=== PATIENT | female | born 1950 | race Caucasian/White ===

== ENCOUNTER → 2017-08-29 | Outpatient (CLI) | payer OTHER, MEDICARE | LOC: BMCIMAGING 14:41 | PROVIDERS: ATTEND Internal Medicine | DX: Z13.820 Encounter for screening for osteoporosis (principal); M81.0 Age-related osteoporosis without current pathological fracture ==

== ENCOUNTER 2017-12-21 16:49 | Observation (INO) | payer OTHER, MEDICARE ==
[2017-12-21] MEDS ORDERED: ONDANSETRON 4 MG/2 ML VIAL ONE (17:17)
[2017-12-21] MEDS ORDERED: ONDANSETRON 4 MG/2 ML VIAL IVP ONE ×2 (17:17→18:03)
[2017-12-21] MEDS ORDERED: NS 1,000 ML IV ONE (17:34)
[2017-12-21 17:39] LABS: PLATELET COUNT 287 10^3/uL (150-400)
--- NOTE | 2017-12-21 17:40 | EDPHY ---
HPI/HX/ROS/PE/MDM - Data Points Imaging: Discussed imaging studies w/ house calls nurse practitioner Radiologist Narrative: CHIEF COMPLAINT: Nausea and vomiting HISTORY OF PRESENT ILLNESS: The patient is a 67 y/o female with a history of kidney stones and osteoporosis complaining of acute onset nausea and vomiting, onset 2:30 PM, 3 hours ago. A month ago, she developed pain in her right flank. She was diagnosed with a bladder infection and took a course of Macrobid. The pain continued. She had several massages and does not feel the pain is muscular in origin. She had a urinalysis a few days ago for the continued pain. Her urine was not indicative of an infection. Today she abruptly developed nausea and vomiting. She has associated global weakness. She denies dizziness, fever, diarrhea, abdominal pain, or any other associated symptoms. She reports this is similar in presentation to previous kidney stones. She denies history of diabetes, hypertension, liver conditions, or cardiac conditions. She had a , but reports no other abdominal surgeries. Patient reports her nausea is much worse with movements. She denies dizziness or spinning sensation. No fever, chills, chest pain, shortness of breath, palpitations, diarrhea, headache, lightheadedness. REVIEW OF SYSTEMS: Aside from elements discussed in the HPI, a comprehensive 10-point review of systems was reviewed and is negative. PAST MEDICAL HISTORY: Kidney stones, osteoporosis, SOCIAL HISTORY: at bedside, lives in [place], retired VITAL SIGNS: Reviewed by me GENERAL: Ill-appearing, laying with eyes closed, reports nausea when sitting up. HEENT: Atraumatic. Eyes: No icterus, no injection. EOMI. No nystagmus. Prefers to lay with her eyes closed. Mouth: moist mucous membranes. No erythema or lesions. Neck: supple with no adenopathy. LUNGS: Clear to auscultation bilaterally, no wheezes, rhonchi or rales. CARDIAC: Regular rate and rhythm, no rubs, murmurs or gallops. ABDOMEN: Suprapubic tenderness, no other abdominal tenderness. Soft, nondistended, bowel sounds normal. BACK: No CVA tenderness. EXTREMITIES: No trauma. No edema. Range of motion is normal throughout. NEURO: Alert and oriented x3. Moving all studies x4. Unable to do finger to nose well secondary to significant dizziness. No gait disturbances reported by the family. SKIN: Warm and dry, no rash. PSYCHIATRIC: Normal mentation, no agitation. (Haritha Atwood) ED Course: 12-LEAD EKG: Please see the full report in [facility]. My interpretation: Normal sinus rhythm The patient presents with acute onset nausea and vomiting today. She has had ongoing right flank pain with a normal UA yesterday. She has a history of kidney stones presenting this way. Plan for CBC, basic metabolic panel, lipase, urinalysis, and abdominal CT. 8 mg Zofran and 1L NS fluid for symptoms. 6:10 PM- CT the abdomen pelvis is normal, no bladder abnormalities noted, no kidney stones. Patient continues to report significant nausea and retching. She looks poorly. Plan for EKG, troponin, and liver enzymes to evaluate other possible causes. 6:35 PM- EKG is normal sinus rhythm, rate 73. New labs are still pending. Zofran hasn't been able to control symptoms. Phenergan has been administered. 7:25 PM- On reexamination, the patient continues to be nauseated and is hyperventilating. She reports dramatic worsening in symptoms with movement of her body but not her eyes. She is producing a urine sample now. Zofran and Phenergan haven't been able to ease symptoms. Valium will be administered once she returns to her room. Plan for CT of the head to investigate neurologic etiology. 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 No ventricular enlargement. Patient has improved with Valium. However, she still is quite nauseous with any type of movement. I feel evaluation for posterior circulation/cerebellar stroke should be pursued. MRI was ordered. She will be admitted for further evaluation. Course discussed with Dr. Meléndez. ( Haritha Atwood) MDM: 2231: MRI of the brain cause me by Dr. Coreas this is negative for acute posterior circulation stroke or infarct, no evidence of stroke or bleed. ( Shekhar Cuevas) Differential diagnoses for the patient's symptom complex was considered including but not limited to pancreatitis, gastritis, electrolyte abnormalities , kidney stone, cerebellar infarct, hypoperfusion, cardiac disease. (Haritha Atwood) - Data Points Imaging Results: Imaging Impressions Abdomen/Pelvis CT 12/21/17 17:35 Impression: 1. Nonobstructive subtle nephrolithiasis. 2. No source for right flank pain identified. Results discussed with Dr. Atwood. Attention: This CT examination is specifically designed to evaluate patients who are clinically suspected of having acute obstructive uropathy. This examination does not use radiographic contrast, and as such, provides only a limited evaluation of the abdomen, pelvis and retroperitoneum. If there is further clinical suspicion for pathological conditions other than obstructive uropathy, a complete CT evaluation of the abdomen and pelvis utilizing intravenous, oral, and rectal contrast should be considered. General information for patients regarding this examination can be found at [employer]. If you have questions or comments about this report, please contact me at [phone](hospital) or [phone] (cell). Head CT 12/21/17 19:34 Impression: 1. 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 2. Right scleral calcification of uncertain clinical significance. Results called to Dr. Atwood' scribe at 8:45 PM General information for patients regarding this examination can be found at [employer]. If you have questions or comments about this report, please contact me at (hospital) or [phone] (cell). Brain MRI 12/21/17 21:15 Impression: No source for acute symptoms identified. No evidence for posterior fossa infarction. Results discussed with Dr. Coffman at 22:30 PM. Laboratory Results: Laboratory Results 12/21/17 17:29 12/21/17 17:29 12/21/17 12/21/17 12/21/17 21:45 19:40 17:34 WBC RBC Hgb Hct MCV MCH MCHC RDW Plt Count MPV Neut % (Auto) Lymph % (Auto) [place] % (Auto) Eos % (Auto) Baso % (Auto) Nucleat RBC Rel Count Absolute Neuts (auto) Absolute Lymphs (auto) Absolute Monos (auto) Absolute Eos (auto) Absolute Basos (auto) Absolute Nucleated RBC Immature Gran % Immature Gran # Sodium Potassium Chloride Carbon Dioxide Anion Gap BUN Creatinine Estimated GFR Glucose Calcium Total Bilirubin 0.4 mg/dL mg/dL (0.1-1.4) Conjugated Bilirubin 0.3 mg/dL mg/dL (0.0-0.5) Unconjugated Bilirubin 0.1 mg/dL mg/dL (0.0-1.1) AST 29 IU/L IU/L (14-46) ALT 35 IU/L IU/L (9-52) Alkaline Phosphatase 93 IU/L IU/L (38-126) Troponin I < 0.012 ng/mL ng/mL < 0.012 ng/mL ng/mL (0.000-0.034) (0.000-0.034) Total Protein 7.0 g/dL g/dL (6.3-8.2) Albumin 4.4 g/dL g/dL (3.5-5.0) Lipase Urine Color YELLOW Urine Appearance HAZY Urine pH 5.0 (5.0-7.5) Ur Specific [place] 1.018 (1.002-1.030) Urine Protein NEGATIVE (NEGATIVE) Urine Ketones 2+ H (NEGATIVE) Urine Blood NEGATIVE (NEGATIVE) Urine Nitrate NEGATIVE (NEGATIVE) Urine Bilirubin NEGATIVE (NEGATIVE) Urine Urobilinogen NEGATIVE EU EU (0.2-1.0) Ur Leukocyte Esterase 2+ H (NEGATIVE) Urine RBC 1-3 /hpf /hpf (0-3) Urine WBC 5-10 /hpf H /hpf (0-3) Ur Epithelial Cells TRACE /lpf /lpf (NONE-1+) Hyaline Casts 1-5 /lpf /lpf (0-1) Urine Mucus TRACE /lpf /lpf (NONE-1+) Urine Glucose NEGATIVE (NEGATIVE) 12/21/17 12/21/17 17:29 17:29 WBC 9.42 10^3/uL 10^3/uL (3.80-9.50) RBC 4.05 10^6/uL L 10^6/uL (4.18-5.33) Hgb 13.8 g/dL g/dL (12.6-16.3) Hct 38.3 % % (38.0-47.0) MCV 94.6 fL D fL (81.5-99.8) MCH 34.1 pg pg (27.9-34.1) MCHC 36.0 g/dL g/dL (32.4-36.7) RDW 12.4 % % (11.5-15.2) Plt Count 287 10^3/uL 10^3/uL (150-400) MPV 9.5 fL fL (8.7-11.7) Neut % (Auto) 77.1 % H % (39.3-74.2) Lymph % (Auto) 17.1 % % (15.0-45.0) [place] % (Auto) 4.4 % L % (4.5-13.0) Eos % (Auto) 0.3 % L % (0.6-7.6) Baso % (Auto) 0.5 % % (0.3-1.7) Nucleat RBC Rel Count 0.0 % % (0.0-0.2) Absolute Neuts (auto) 7.26 10^3/uL H 10^3/uL (1.70-6.50) Absolute Lymphs (auto) 1.61 10^3/uL 10^3/uL (1.00-3.00) Absolute Monos (auto) 0.41 10^3/uL 10^3/uL (0.30-0.80) Absolute Eos (auto) 0.03 10^3/uL 10^3/uL (0.03-0.40) Absolute Basos (auto) 0.05 10^3/uL 10^3/uL (0.02-0.10) Absolute Nucleated RBC 0.00 10^3/uL 10^3/uL (0-0.01) Immature Gran % 0.6 % % (0.0-1.1) Immature Gran # 0.06 10^3/uL 10^3/uL (0.00-0.10) Sodium 139 mEq/L mEq/L (135-145) Potassium 3.3 mEq/L L mEq/L (3.5-5.2) Chloride 105 mEq/L mEq/L (97-110) Carbon Dioxide 13 mEq/l L mEq/l (22-31) Anion Gap 21 mEq/L H mEq/L (8-16) BUN 16 mg/dL mg/dL (7-23) Creatinine 0.9 mg/dL mg/dL (0.6-1.0) Estimated GFR > 60 Glucose 192 mg/dL H mg/dL (70-100) Calcium 9.7 mg/dL mg/dL (8.5-10.4) Total Bilirubin Conjugated Bilirubin Unconjugated Bilirubin AST ALT Alkaline Phosphatase Troponin I Total Protein Albumin Lipase 119 IU/L IU/L (23-300) Urine Color Urine Appearance Urine pH Ur Specific [place] Urine Protein Urine Ketones Urine Blood Urine Nitrate Urine Bilirubin Urine Urobilinogen Ur Leukocyte Esterase Urine RBC Urine WBC Ur Epithelial Cells Hyaline Casts Urine Mucus Urine Glucose Medications Given: Discontinued Medications Diazepam (Valium) 5 mg IVP EDNOW ONE Stop: 12/21/17 19:36 Last Admin: 12/21/17 20:07 Dose: 5 mg Sodium Chloride (Ns) 1,000 mls @ 0 mls/hr IV EDNOW ONE; Wide Open PRN Reason: Protocol Stop: 12/21/17 17:35 Last Admin: 12/21/17 18:00 Dose: 1,000 mls Ondansetron HCl (Zofran) 4 mg IVP EDNOW ONE Stop: 12/21/17 17:18 Last Admin: 12/21/17 17:28 Dose: 4 mg Ondansetron HCl (Zofran) 4 mg IVP EDNOW ONE Stop: 12/21/17 18:04 Last Admin: 12/21/17 18:04 Dose: 4 mg Promethazine HCl (Phenergan) 12.5 mg IVP EDNOW ONE Stop: 12/21/17 19:14 Last Admin: 12/21/17 19:24 Dose: 12.5 mg General Time Seen by Provider: 12/21/17 17:10 Initial Vital Signs: Initial Vital Signs Temperature (C) 36.4 C 12/21/17 16:50 Heart Rate 85 12/21/17 16:50 Respiratory Rate 20 12/21/17 16:50 Blood Pressure 117/71 12/21/17 16:50 O2 Sat (%) 99 12/21/17 16:50 O2 Delivery Mode Nasal Cannula O2 (L/minute) 2 Allergies/Adverse Reactions: codeine Allergy (Mild, Verified 12/21/17 17:02) GI Home Medications: Medication Instructions Recorded NK [No Known Home Meds] 12/21/17 Departure - Departure Disposition: [facility] Inpatient Acute Clinical Impression: Nausea Condition: Fair Report Scribed for: Haritha Atwood Report Scribed by: Tiffany Arcos Date of Report: 12/21/17 Time of Report: 17:43 Physician Review and Approval Statement: Portions of this note were transcribed by a medical transcriptionist. I personally performed a history, physical exam, medical decision making, and confirmed accuracy of information the transcribed note.
--- NOTE | 2017-12-21 18:36 | CPEKG ---
Heart Rate: 73 RR Interval: 822 P-R Interval: 172 QRSD Interval: 84 QT Interval: 456 QTC Interval: 503 P [place]: 75 QRS [place]: 31 T Wave [place]: 54 EKG Severity - BORDERLINE ECG - EKG Impression: SINUS RHYTHM EKG Impression: BORDERLINE PROLONGED QT INTERVAL Electronically Signed By: Won Ramires 21-Dec-2017 21:53:52
[2017-12-21] MEDS ORDERED: PROMETHAZINE HCL 25 MG/ML INJ IVP ONE (19:13)
[2017-12-21] MEDS ORDERED: MECLIZINE HCL 25 MG TAB ONE (19:16)
[2017-12-21] MEDS ORDERED: DIAZEPAM 5 MG/ML 1 ML SYR IVP ONE (19:35)
[2017-12-21] MEDS ORDERED: LORazepam 2 MG/ML INJ ONE (19:45)
[2017-12-21] MEDS ORDERED: ACETAMINOPHEN 325 MG TAB PO PRN (22:52)
[2017-12-21] MEDS ORDERED: PROMETHAZINE HCL 25 MG/ML INJ IVP PRN (22:52)
[2017-12-21] MEDS ORDERED: ONDANSETRON 4 MG/2 ML VIAL IVP PRN (22:52)
[2017-12-21] MEDS ORDERED: NS 1,000 ML IV SCH (23:00)
[2017-12-21] MEDS ORDERED: DIAZEPAM 5 MG/ML 1 ML SYR IVP PRN (23:14)
[2017-12-22] MEDS ORDERED: PROTOCOL POTASSIUM 1 DOSE MISC PRN (02:02)
--- NOTE | 2017-12-22 03:47 | PDGENHP ---
History and Physical - Chief Complaint Intractable nausea vomiting - History of Present Illness Source-patient provides history appears reliable. EMR was reviewed and case discussed with ED provider. HPI - the very pleasant 63-year-old female with past medical history significant for nephrolithiasis and osteoporosis who presents emergency department today with sudden onset of severe nausea vomiting. Patient reports that she has also has ongoing intermittent for of right flank pain which she thought was likely due to her kidney stones. She does have a history of passing a stone in 1995 and was found to be oxalate. Patient was also identified to have a possible UTI approximately 1 month ago for which she was treated with Macrobid. She did have symptoms consistent with a cystitis which did resolve with antibiotic therapy. She denies any current dysuria or his gross hematuria. Patient did continue to have intermittent right flank pain until now however she did attempt to have massage therapy applied and reports that her pain persisted and did not appear to be musculoskeletal in nature. Patient denies any fevers or chills. Patient did continue to have severe nausea with few episodes of vomiting with any kind of movement. Patient was at her school volunteering at a when at 4:00 p.m. She developed her symptoms started suddenly. She did feel she could drive so she called her to drive her to Urgent Care over when she had a stops she got to the car she had an episode of nonbloody nonbilious emesis. Patient its subsequently dropped her off at [facility] instead. Patient has not had any a associated diarrhea, abdominal pain, distension. She did feel and epigastric "knot" but no pain. Patient at no point had any associated vertigo or lightheadedness. She denies any numbness or headache. History Information - Allergies/Home Medication List Allergies/Adverse Reactions: codeine Allergy (Mild, Verified 12/21/17 17:02) GI Home Medications: NK [No Known Home Meds] 12/21/17 [Last Taken Unknown] I have personally reviewed and updated: family history, medical history, social history, surgical history Past Medical History: Nephrolithiasis, osteoporosis, newly identified brain cyst left parietal lobe. - Surgical History Additional surgical history: , ACL, left breast - Family History Additional family history: Sister with osteoporosis, mother with CVA and colon cancer, father with history of prostate cancer and CAD. - Social History Smoking Status: Never smoked Alcohol Use: Occasionally Drug Use: None Additional social history: Patient is lives with her . She is retired. Cor status-full. Review of Systems Review of Systems: ROS: 10pt was reviewed & negative except for what was stated in HPI & below Physical Exam Physical Exam: Selected Entries 12/21/17 16:50 Blood Pressure Automatic Method Heart Rate 85 Respiratory 20 Rate O2 Sat (%) 99 Temperature (C) 36.4 C Blood Pressure 117/71 Mean Arterial 86 Pressure (MAP) O2 Delivery Room Air Mode Temperature Oral Source Temp Pulse Resp BP Pulse Ox 36.6 C 63 16 107/66 97 12/22/17 00:00 12/22/17 00:00 12/22/17 00:00 12/22/17 00:00 12/22/17 00:00 O2 (L/minute) 2 Constitutional: no apparent distress, not in pain, other (Patient appears fatigued but awake and in pleasant spirits.) Eyes: PERRL (Decreased reactivity light bilaterally but symmetric.), anicteric sclera, EOMI, No scleral injection Ears, Nose, Mouth, Throat: moist mucous membranes, No poor dentition Cardiovascular: regular rate and rhythym, no murmur, rub, or gallop, other ( Slightly distant heart sounds.), No edema Peripheral Pulses: 2+: dorsalis-pedis (R), dorsalis-pedis (L) Respiratory: no respiratory distress, no rales or rhonchi, clear to auscultation , No expiratory wheeze Gastrointestinal: normoactive bowel sounds, soft, non-tender abdomen, no palpable masses, No guarding, No distension Genitourinary: no bladder tenderness, No paulino in urethra Skin: warm, normal color, mottled, no rashes or abrasions, no fluctuance, other (Minimal pallor) Musculoskeletal: generalized weakness, No pain with ROM Neurologic: AAOx3, sensation intact bilaterally, weakness (Generalized weakness) , No CN II-XII Intact (Nonfocal), No facial droop Psychiatric: interacting appropriately, not anxious, not encephalopathic, thought process linear, No poor insight, No poor judgement, No poor memory Lab Data & Imaging Review 12/21/17 17:29 12/21/17 17:29 WBC 9.42 10^3/uL (3.80-9.50) 12/21/17 17:29 RBC 4.05 10^6/uL (4.18-5.33) L 12/21/17 17: Hgb 13.8 g/dL (12.6-16.3) 12/21/17 17: Hct 38.3 % (38.0-47.0) 12/21/17: MCV 94.6 fL (81.5-99.8) D 12/21/17: MCH 34.1 pg (27.9-34.1) 12/21/17: MCHC 36.0 g/dL (32.4-36.7) 12/21/17: RDW 12.4 % (11.5-15.2) 12/21/17 Plt Count 287 10^3/uL (150-400) 12/21/17: MPV 9.5 fL (8.7-11.7) 12/21/17: Neut % (Auto) 77.1 % (39.3-74.2) H 12/21/17 17: Lymph % (Auto) 17.1 % (15.0-45.0) 12/21/17: [place] % (Auto) 4.4 % (4.5-13.0) L 12/21/17: Eos % (Auto) 0.3 % (0.6-7.6) L 12/21/17: Baso % (Auto) 0.5 % (0.3-1.7) 12/21/17: Nucleat RBC Rel Count 0.0 % (0.0-0.2) 12/21/17 17: Absolute Neuts (auto) 7.26 10^3/uL (1.70-6.50) H 12/21/17 17: Absolute Lymphs (auto) 1.61 10^3/uL (1.00-3.00) 12/21/17: Absolute Monos (auto) 0.41 10^3/uL (0.30-0.80) 12/21/17 17: Absolute Eos (auto) 0.03 10^3/uL (0.03-0.40) 12/21/17 17:29 Absolute Basos (auto) 0.05 10^3/uL (0.02-0.10) 12/21/17 17:29 Absolute Nucleated RBC 0.00 10^3/uL (0-0.01) 12/21/17 17:29 Immature Gran % 0.6 % (0.0-1.1) 12/21/17 17:29 Immature Gran # 0.06 10^3/uL (0.00-0.10) 12/21/17 17:29 Sodium 139 mEq/L (135-145) 12/21/17 17:29 Potassium 3.3 mEq/L (3.5-5.2) L 12/21/17 17:29 Chloride 105 mEq/L (97-110) 12/21/17 17: Carbon Dioxide 13 mEq/l (22-31) L 12/21/17 17:29 Anion Gap 21 mEq/L (8-16) H 12/21/17 17:29 BUN 16 mg/dL (7-23) 12/21/17 17:29 Creatinine 0.9 mg/dL (0.6-1.0) 12/21/17 17:29 Estimated GFR > 60 12/21/17 17:29 Glucose 192 mg/dL (70-100) H 12/21/17 17:29 Calcium 9.7 mg/dL (8.5-10.4) 12/21/17 17:29 Magnesium 1.8 mg/dL (1.6-2.3) 12/21/17 21:45 Total Bilirubin 0.4 mg/dL (0.1-1.4) 12/21/17 17:34 Conjugated Bilirubin 0.3 mg/dL (0.0-0.5) 12/21/17 17:34 Unconjugated Bilirubin 0.1 mg/dL (0.0-1.1) 12/21/17 17:34 AST 29 IU/L (14-46) 12/21/17 17:34 ALT 35 IU/L (9-52) 12/21/17 17:34 Alkaline Phosphatase 93 IU/L (38-126) 12/21/17 17:34 Troponin I < 0.012 ng/mL (0.000-0.034) 12/21/17 21:45 Total Protein 7.0 g/dL (6.3-8.2) 12/21/17 17:34 Albumin 4.4 g/dL (3.5-5.0) 12/21/17 17:34 Lipase 119 IU/L (23-300) 12/21/17 17:29 Urine Color YELLOW 12/21/17 19:40 Urine Appearance HAZY 12/21/17 19:40 Urine pH 5.0 (5.0-7.5) 12/21/17 19:40 Ur Specific [place] 1.018 (1.002-1.030) 12/21/17 19:40 Urine Protein NEGATIVE (NEGATIVE) 12/21/17 19:40 Urine Ketones 2+ (NEGATIVE) H 12/21/17 19:40 Urine Blood NEGATIVE (NEGATIVE) 12/21/17 19:40 Urine Nitrate NEGATIVE (NEGATIVE) 12/21/17 19:40 Urine Bilirubin NEGATIVE (NEGATIVE) 12/21/17 19:40 Urine Urobilinogen NEGATIVE EU (0.2-1.0) 12/21/17 19:40 Ur Leukocyte Esterase 2+ (NEGATIVE) H 12/21/17 19:40 Urine RBC 1-3 /hpf (0-3) 12/21/17 19:40 Urine WBC 5-10 /hpf (0-3) H 12/21/17 19:40 Ur Epithelial Cells TRACE /lpf (NONE-1+) 12/21/17 19:40 Hyaline Casts 1-5 /lpf (0-1) 12/21/17 19:40 Urine Mucus TRACE /lpf (NONE-1+) 12/21/17 19:40 Urine Glucose NEGATIVE (NEGATIVE) 12/21/17 19:40 Imaging Review: CT Abdomen and Pelvis Without Contrast (Stone Protocol) History: Right flank pain, history of kidney stones. Technique: Ultrathin ultrafast [address] through the abdomen and pelvis without contrast. Dose reduction techniques were utilized. Comparison: None Findings: There is no hydronephrosis or hydroureter. There is subtle bilateral nonobstructive nephrolithiasis. There is a normal retrocecal appendix with the tip of the appendix adjacent to the right hepatic tip. The gallbladder, liver, pancreas, adrenal glands and retroperitoneum look normal. There is no diverticulosis or diverticulitis. There is no evidence of a bowel obstruction or adnexal pathology . No free air or free fluid is the lung bases are normally aerated. Heart size is normal without pericardial or pleural effusion. Identified. Incidentally noted is degenerative lumbar disk disease between L4 and L5. Impression: 1. Nonobstructive subtle nephrolithiasis. 2. No source for right flank pain identified. Results discussed with Dr. Atwood. Attention: This CT examination is specifically designed to evaluate patients who are clinically suspected of having acute obstructive uropathy. This examination does not use radiographic contrast , and as such, provides only a limited evaluation of the abdomen, pelvis and retroperitoneum. If there is further clinical suspicion for pathological conditions other than obstructive uropathy, a complete CT evaluation of the abdomen and pelvis utilizing intravenous, oral, and rectal contrast should be considered. CT Head Without Contrast, 8:22 PM History: Severe nausea and dizziness. Technique: Noncontrast images through the head. Soft tissue and bone window evaluation is performed. Dose reduction techniques were utilized. Comparison: None Findings: There is a left mid parietal, central white matter, 13 mm cyst with a tiny mural calcification. This is suspicious for possible cysticercosis. This is not associated with surrounding edema or mass effect. A small cyst in the medial right temporal lobe may represent a small etat crible or second cysticercosis cyst. There is no hemorrhage, midline shift, acute infarction, intracranial edema, hydrocephalus or abnormal intraventricular calcification. No subarachnoid or subdural blood is identified. There is no midline shift. The ambient cistern is patent. Bone window evaluation reveals normally aerated paranasal and mastoid sinuses and middle ears. There is no evidence of pneumocephalus. Incidentally noted is a small posterior upper right globe, scleral calcification. Impression: 1. 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 2. Right scleral calcification of uncertain clinical significance. Results called to Dr. Atwood' scribe at 8:45 PM MRI of the Brain (Without Contrast), 21:58 History: Abrupt nausea, severe vomiting and dizziness. Possible cysticercosis seen on head CT. Technique: T1-weighted images were acquired axially and sagittally from the foramen magnum to the vertex. Axial fast inversion recovery, fast T2-weighted, GRE and diffusion- weighted axial images were obtained without contrast. Comparison: Head CT earlier at 20:22 Findings: There is no evidence for posterior fossa infarction, distal vertebral artery or basilar artery thrombosis, interventricular cystic lesion or acute hydrocephalus. A dominant cystic lesion in the internal left parietal white matter is again identified. An additional tiny right parietal cortical vertex gyral cyst is identified. There are prominent bilateral, white matter foci of isovolumic T2-weighted isovolumic hyperintensity, in the subcortical and deep white matter, and more limited in the periventricular white matter, of the nature often seen in elderly hypertensive and/or diabetic patients. A subtle similar area is present in the central nai. None of these are associated with restricted diffusion or hemorrhage. The ventricles, cisterns, and sulci are normal without atrophy, hydrocephalus , midline shift, herniation, or epidural/subdural hematomas. No intracranial hemorrhage or solid mass is evident. Diffusion-weighted sequence demonstrates no acute infarct. Cerebellar tonsils are in normal position. Pituitary gland is normal in size. Normal signal flow-void in the superior sagittal sinus , basilar artery, and bilateral internal carotid arteries indicating patency. Paranasal sinuses and mastoid air cells are clear. Impression: No source for acute symptoms identified. No evidence for posterior fossa infarction. EKG additional interpertation: NSR 70s. no acute ST changes. QTc 503. Assessment & Plan Assessment: Intractable nausea vomiting - etiology of patient's nausea vomiting is not quite clear. Differential including gastroenteritis versus nephrolithiasis with rule out for acute CVA or GA versus neurocysticercosis.She is status post Valium in the emergency department which has improved her symptoms on which are now completely resolved. Patient underwent CT head and MRI without any evidence of acute infarct. She does show multiple nonocclusive stones bilaterally which could be contributing to her current symptoms. CT head did show a few CIS concerning for possible cysticercosis without any evidence of cerebral edema or shift. Patient will continue have p.r.n. Zofran, Phenergan , Valium which seems to have had the most benefit for her acutely. Nephrolithiasis bilaterally - nonocclusive disease present. No evidence of hydronephrosis or perinephric stranding on CT. Left parietal cyst - no evidence of edema or shift. Concern for potential sister sarcosis. Patient without any diarrhea or abdominal pain. Check stool O and P Consider discussing with Infectious Disease in the morning as per day team. Hypokalemia-replacement per protocol. Patient's nausea vomiting have improved she has been able to tolerate a little bit of on oral intake anticipate this will correct now that her vomiting has ceased. FEN - IVF overnight for replacement. Electrolyte protocol placed for potassium replacement. Magnesium level is fine. Advance diet as tolerated. PPX-SCDs. Lovenox if patient should stay additional day. Cor status-full Disposition patient admitted to observation status on the medical floor for further monitoring and potential treatment of her nausea vomiting.
[2017-12-22] MEDS ORDERED: NS 500 ML IV ONE (06:02)
[2017-12-22 07:25] VITALS: PULSE 66
[2017-12-22] MEDS ORDERED: ENOXAPARIN 40 MG/0.4 ML SYR SC SCH (09:00)
--- NOTE | 2017-12-22 11:39 | ASMTLACE ---
WILL Acuity / Level of Answers: No Care: Did the patient have an inpatient admission? Comorbidities - select Answers: Other Notes: Nephrolithiasis, osteop laura all that apply sis # of Emergency department Answers: 1-2 visits in the last 6 months Score: 2 Date Signed: 12/22/2017 11:38 AM Electronically Signed By:Gabrielle Thompson RN
--- NOTE | 2017-12-22 11:41 | ASMTCMCOM ---
CM Note CM Note Notes: Met with patient regarding discharge plan of care. Patient lives at home with and denies the need for any assistance upon discharge. CM discussed with primary RN. CM available for any changes. Current Discharge Plan: Home with . Date Signed: 12/22/2017 11:40 AM Electronically Signed By:Gabrielle Thompson RN
[2017-12-22 11:44] VITALS: BP 99/63; RESP 16; TEMP 98.5; O2SAT 95
--- NOTE | 2017-12-22 16:06 | GDS ---
[f rep st] DISCHARGE SUMMARY DISCHARGE DIAGNOSES: 1. Intractable nausea and vomiting. 2. Nephrolithiasis, nonobstructing. 3. Osteoporosis. 4. New diagnosis of left parietal lobe brain cyst. HISTORY OF PRESENT ILLNESS: This is a 67-year-old female who presents with sudden onset severe nause a and vomiting. For details of patient's initial presentation, please see the history and physical, dated 12/21/2017. CONSULTATIVE SERVICES: Neurology. PROCEDURES: On 12/21/2017, patient had a brain MRI which shows a chronic left parietal brain cyst. HOSPITAL COURSE BY ISSUE: 1. Acute intractable nausea and vomiting. Patient was admitted and placed on IV antiemetics, IV flu ids, and IV benzodiazepine. She had resolution of her nausea and vomiting hours after arrival to the hospital. She did not require antiemetics overnight and did not have recurrent vomiting overnight. Patient took normal p.o. intake morning after admission and is being discharged with p.r.n. Zofran. As best we can guess, this may have been a viral pathogen causing gastroenteritis, although patient did not develop any diarrhea during this stay, but we can test and confirm that theory. 2. New diagnosis of left parietal brain cyst. Dr. Celaya from Neurology to review imaging which he did with the radiologist. The images seem consistent with a chronic benign brain cyst. Dr. Celaya would l dalia the patient to return to the neurology clinic outpatient for repeat brain MRI imaging in 3 months ' time. MEDICATIONS AT THE TIME OF DISPOSITION: Please reference the med rec printed on 12/22/2017. PENDING STUDIES: None. FOLLOWUP APPOINTMENTS: 1. Primary care provider in the next 1-2 weeks for post-disposition followup and assessment of her s ymptoms if recurrent. 2. Dr. Ollie Celaya in 3 months' time for repeat MRI imaging of the brain. TIME SPENT: I spent greater than 30 minutes in the planning and coordination of this discharge. /[id number]/MODL
== END 2017-12-22 14:09 | disposition home or self-care (01) ==
LOC: F3N 23:46
PROVIDERS: ADMIT Family Medicine; ATTEND Hospitalist
DX: R11.2 Nausea with vomiting, unspecified (principal); G93.0 Cerebral cysts; N20.0 Calculus of kidney; M81.0 Age-related osteoporosis without current pathological fracture
CPT/HCPCS: 70450; 70551; 74176; 93005; 96374; 96375; 96376; 99285; G0378; J2060; J2405; J2550; J3360; 80307; G0480; J1650

== ENCOUNTER → 2018-02-14 | Outpatient (CLI) | payer OTHER, MEDICARE ==
[~2018-02-14] MED LIST: GADOBUTROL 10 ML VIAL IVP ONE
== END ==
LOC: FIMAGING 12:06
PROVIDERS: ATTEND Internal Medicine
DX: R90.89 Other abnormal findings on diagnostic imaging of central nervous system (principal)
CPT/HCPCS: 70553; A9585

== ENCOUNTER → 2019-02-26 | Outpatient (CLI) | payer OTHER, MEDICARE | LOC: BMCIMAGING 14:59 | PROVIDERS: ATTEND Family Medicine | DX: S69.91XA Unspecified injury of right wrist, hand and finger(s), initial encounter (principal) ==